=== PATIENT | female | born 1940 | race Caucasian/White ===

== ENCOUNTER → 2017-08-30 | Outpatient (CLI) | payer MEDICARE ==
[~2017-08-30] MED LIST: ALBUTEROL INH; CLEOCIN HCL150 MG PO; COLACE 100 MG100 MG PO; DARVOCET-N 1001 EAC1 PO; HYTRIN 5 M5 MG/1 CA1 PO; IRON325 PO; MIRALAX255 GM PO; NORCO 5-325 TA1 EACH PO; OXYIR5 MG PO; PERCOCET 5-3251 EACH PO; POTASSIUM20 PO; VICODIN 5-5001 EACH PO
== END ==
LOC: M.RAD 14:05
DX: Z12.31 Encounter for screening mammogram for malignant neoplasm of breast (principal)